=== PATIENT | female | born 1990 | race Caucasian/White ===

== ENCOUNTER 2016-10-17 06:00 | Inpatient (IN) ==
[2016-10-17] MEDS ORDERED: METHYLERGONOVINE 0.2 MG/ML INJECTION IM PRN (06:12)
[2016-10-17] MEDS ORDERED: OXYTOCIN DRIP 30 UNIT/500 ML ML IV PRN (06:12)
[2016-10-17] MEDS ORDERED: D5LR 1,000 ML IV PRN (06:12)
[2016-10-17] MEDS ORDERED: MAG-AL + SIM ORAL LIQUID 30ml PO PRN ×2 (06:12→16:25)
[2016-10-17] MEDS ORDERED: LIDOCAINE 1% (10mg/ml) 2mL INJ PF SDV ID PRN (06:12)
[2016-10-17] MEDS ORDERED: ACETAMINOPHEN 500 MG TABLET PO PRN ×2 (06:12→16:25)
[2016-10-17] MEDS ORDERED: CARBOPROST 250 MCG/ML INJECTION IM PRN (06:12)
[2016-10-17] MEDS ORDERED: CALCIUM CARBONATE Chewable 500mg TABLET PO PRN ×2 (06:12→16:25)
[2016-10-17] MEDS: LR 1,000 ML IV SCH ×5 (06:47→15:16)
[2016-10-17] MEDS ORDERED: AMPICILLIN 2 GM in NS 100 ML IV SCH (07:00)
[2016-10-17] MEDS: AMPICILLIN 1 GM in NS 100 ML IV SCH ×2 (10:50→11:28)
[2016-10-17] MEDS ORDERED: NALBUPHINE 10 MG/ML INJECTION IVP ONE (12:57)
[2016-10-17 13:31] VITALS: BMI 34.6
[2016-10-17] MEDS ORDERED: ONDANSETRON 4 MG/2 ML INJECTION IV ONE (14:32)
[2016-10-17] MEDS ORDERED: SALINE FLUSH 10ml SYRINGE IVF PRN (16:25)
[2016-10-17] MEDS ORDERED: DiphenhydrAMINE 25 MG CAPSULE PO PRN (16:25)
[2016-10-17] MEDS ORDERED: BENZOCAINE 20% SPRAY 0.5 ML MM ONE (16:25)
[2016-10-17] MEDS ORDERED: HYDROCODONE/APAP 5mg/325mg TABLET PO PRN (16:25)
[2016-10-17] MEDS ORDERED: HYDROCORTISONE 2.5% CREAM 30gm RECTALLY PRN (16:25)
[2016-10-17] MEDS ORDERED: OXYTOCIN DRIP 30 UNIT/500 ML ML IV SCH (16:25)
[2016-10-18] MEDS: IBUPROFEN 800 MG TABLET PO PRN ×2 (05:01→14:35)
--- NOTE | 2016-10-18 07:28 | Labor and Delivery Note ---
DATE OF DELIVERY: 10/17/2016 DELIVERY DIAGNOSES 1. 26-year-old white female, G5, P3 at 39.0 weeks gestational age. 2. Pitocin induction of labor for logistics. 3. GBS prophylaxis. 4. Artificial rupture of membranes. 5. Spontaneous vaginal delivery. 6. Female infant, 3035 g (6 pounds, 11 ounces), 8/9 Apgars (Leila Seth). BRIEF DESCRIPTION This is a patient of mine that was brought in for logistics induction today. Her cervix was initially 2 cm dilated. Pitocin reached a maximum of 26 milliunits a minute. Artificial rupture of membranes occurred approximately 9: 30 a.m. The patient progressed slowly until she was about 5 cm and then rapidly progressed to delivery. When she was completely dilated, she had the urge to push. Spontaneous vaginal delivery occurred from the OA position. Infant was bulb suctioned after delivery of the head and then again after delivery of the body. Cord was doubly clamped and cut after it drained for about a [id number], and the 's father cut the cord. Infant was initially placed on the mother's abdomen. Placenta was delivered and was intact. At the time of dictation mother and are doing well. [facility]
[2016-10-18] MEDS: DOCUSATE CALCIUM 240 MG CAPSULE PO SCH (09:15)
--- NOTE | 2016-10-18 11:03 | OB/GYN Progress Note ---
OB-Progress Note Free Text - Date Date: 10/18/16 - Progress Note Progress Note: pt doing well no c/o vss af cpnt routine care path
[2016-10-19] MEDS: IBUPROFEN 800 MG TABLET PO PRN (04:59)
[2016-10-19 07:29] VITALS: PULSE 78
[2016-10-19 07:50] VITALS: BP 134/87; RESP 18; TEMP 98.2; O2SAT 100
--- NOTE | 2016-10-19 08:44 | OB/GYN Progress Note ---
OB-Progress Note Free Text - Date Date: 10/19/16 - Progress Note Progress Note: vss af no c/o instructions reviewed q&a
--- NOTE | 2016-10-19 08:48 | Discharge Instructions ---
Discharge Plan - Med Rec/Dispo Referrals/Follow Up: Chris Bell MD [Physician] - Prescriptions: New Ibuprofen [Motrin] 800 mg PO Q8H PRN tablet PRN Reason: Pain Continue Vits W-Ca,Fe,Fa(<1MG) () 1 tab PO #0 - Disposition 01 Discharged Home, Self-Care
[2016-10-19] MEDS: DOCUSATE CALCIUM 240 MG CAPSULE PO SCH (09:33)
== END 2016-10-19 13:15 | disposition home or self-care (01) | DRG 775 ==
LOC: MC 06:06
PROVIDERS: ADMIT Obstetrics & Gynecology; ATTEND Obstetrics & Gynecology